=== PATIENT | male | born 2000 | race Caucasian/White ===

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

== ENCOUNTER 2021-11-03 21:04 | Emergency (ER) | payer SELFPAY ==
[2021-11-03] MEDS ORDERED: Naloxone 0.4 MG/ML SDV ONE (21:13)
[2021-11-03 21:52] VITALS: BP 111/68; PULSE 106
[2021-11-03] MEDS ORDERED: Lactated Ringers 1,000 ML IV ONE (21:58)
[2021-11-03] MEDS ORDERED: Ondansetron 4 MG/2 ML SDV IVPUSH ONE (21:59)
[2021-11-03] MEDS ORDERED: Potassium Chloride 20 MEQ Tab.ER PO ONE (22:08)
== END 2021-11-04 00:18 | disposition home or self-care (01) ==
LOC: JP.ED 21:04
DX: S05.12XA Contusion of eyeball and orbital tissues, left eye, initial encounter (principal); F10.129 Alcohol abuse with intoxication, unspecified; E87.6 Hypokalemia; R41.82 Altered mental status, unspecified; Y90.8 Blood alcohol level of 240 mg/100 ml or more; W18.30XA Fall on same level, unspecified, initial encounter
CPT/HCPCS: 36415; 70450; 72125; 80048; 80076; 80305-QW; 80307; 82947; 83735; 84443; 84484; 85025; 93005; 93010; 96374; 99283; 99285-25; A9270-GY; J2405; J7120

== ENCOUNTER 2022-12-29 22:36 | Emergency (ER) | payer MEDICAID ==
[2022-12-29 23:30] VITALS: PULSE 86
== END 2022-12-29 22:50 ==
LOC: JP.ED 22:36
DX: S30.810A Abrasion of lower back and pelvis, initial encounter (principal); F10.929 Alcohol use, unspecified with intoxication, unspecified; S00.81XA Abrasion of other part of head, initial encounter
CPT/HCPCS: 99283